=== PATIENT | male | born 1995 | race African-American/Black ===

== ENCOUNTER 2020-03-26 09:54 | Emergency (ER) | payer OTHER ==
[~2020-03-26] VITALS: Ht 177.8 cm; Wt 95.0 kg
[2020-03-26 09:59] VITALS: BP 123/75
== END 2020-03-26 11:06 | disposition home or self-care (01) ==
LOC: ER 09:54
DX: M25.511 Pain in right shoulder (principal)
CPT/HCPCS: 73030; 99283